=== PATIENT | male | born 1955 ===

== ENCOUNTER 2020-01-07 01:49 | Outpatient (CLI) | payer MEDICARE, SELFPAY ==
[2020-01-07 21:19] LABS: SARS-CoV-2 RNA PCR Negative
== END 2020-01-07 01:50 | disposition home or self-care (01) ==
LOC: ANHCOVIDDT 01:49
PROVIDERS: Visit Provider Internal Medicine Critical Care Medicine
DX: Z01.812 Encounter for preprocedural laboratory examination (principal); Z20.828 Contact with and (suspected) exposure to other viral communicable diseases
CPT/HCPCS: 87635; C9803; U0003

== ENCOUNTER 2020-01-10 07:20 | Outpatient (CLI) | payer MEDICARE, SELFPAY ==
--- NOTE | 2020-02-07 14:07 | WPDSLEEPSTUD ---
Sleep Study Date of Study: 01/10/20 Ordering Provider: Interpreting Physician: Sleep Study Type: Polysomnogram Height: 1.7 m Weight: 73.936 kg Body Mass Index: 25.5 Neck Circumference: 40.64 cm Warren: 5 Reason for Sleep Study Chronic Fatigue, daytime sleepiness. Sleep History Patient lives alone, does not know whether he snores. Complains of dry mouth, chronic fatigue and daytime sleepiness. Warren score as recorded by Dr. Emmanuel was 12. PMFSH Past Medical History Medical History (Updated 12/15/19 @ 14:12 by Chelo Emmanuel MD) Anxiety disorder Hypersomnolence (~2018) Major depression Malaise and fatigue Obstructive sleep apnea Primary insomnia Vision problems Family History Family History Father Heart disease Malignant neoplasm of prostate Mother Heart disease Social History Social History (Updated 12/15/19 @ 14:00 by Chelo Emmanuel MD) Smoking packs per day: 1 Smoking cigarettes per day: 20.0 Years smoked: 45 Smoking pack-years: 45.00 Smoking status: Former smoker Additional smoking assessment comments: at most smoked 2 ppd for 1-2 years, started smoking around age 19; no marij Alcohol intake: current Drinks per week: 14 Additional occupation/education comments: Worked for [employer], retired 10 years ago Medications Home Medications Medication Instructions Recorded Confirmed Type propranolol 80 mg tablet 80 mg PO Q12H 12/12/19 History ropinirole 1 mg tablet 1 mg PO DAILY tablet 12/12/19 History sertraline 100 mg tablet 100 mg PO DAILY 12/12/19 History simvastatin 40 mg tablet 40 mg PO DAILY 12/12/19 History trazodone 100 mg tablet 50 mg PO DAILY tablet 12/12/19 History venlafaxine 150 mg 150 mg PO DAILY 12/12/19 History capsule,extended release 24 hr venlafaxine 37.5 mg 37.5 mg PO DAILY 12/12/19 History capsule,extended release 24 hr Sleep Procedure In lab polysomnographic evaluation. Sleep Architecture Total recording time 535 minutes, total sleep time 220 minutes, sleep efficiency 41.2%. Sleep onset 225 minutes, REM latency 259 minutes. Awake after sleep onset 89 minutes, stage N1 24%, stage N2 56.5% stage N3 is 0%, stage R 19 0.5% supine sleep 10.2%. Respiratory Analysis There were no apneas, 5 hypopneas noted with apnea-hypopnea index 1.4 all events occurred in nonsupine sleep, And non-REM sleep. Arousals Total arousals 207 -index 23.2, limb movements 70 -index 7.8, spontaneous 56 -in dex 6.3, snores 78 - index 8.7. Periodic Limb Movements Leg movement- 172 -index 46.8. No PLMS. Oximetry Data Mean oxygen saturation 94.5, minimum saturation 91. No significant desaturations. Snoring Profile Intermittent snoring, on occasion loud. Cardiac Profile Sinus rhythm min heart rate 66. EEG Profile Unremarkable EEG. Assessment and Plan Additional Plan Patient has poor quality of sleep. Prolonged period of awake state noted. I wonder if he took bedtime trazodone prior to the study. Intermittent loud snoring is noted. Fragmentation of sleep was result of snoring and leg movements, though spontaneous arousals were also seen. Overall the patient does not exhibit significant sleep disordered breathing. Multiple leg movements were noted. The patient history mentions use of ropinirole. Presumably because of restless leg syndrome. The use of SNRI may aggravate RLS. the daytime symptomatology is not explained by WAQAR.
[2020-02-07 14:26] VITALS: BMI 25.5
== END 2020-01-10 07:21 | disposition home or self-care (01) ==
LOC: ANHCSM 07:21
PROVIDERS: Visit Provider Internal Medicine Critical Care Medicine
DX: G47.10 Hypersomnia, unspecified (principal)
CPT/HCPCS: 95810